=== PATIENT | male | born 1980 | race Two or more races ===

== ENCOUNTER → 2024-07-21 | Outpatient (CLI) | payer MEDICAID, SELFPAY ==
--- NOTE | 2024-07-21 15:06 | XR_ITS ---
Examination: Testicular sonography complete Technique: Grayscale sonographic images testes, assessment arterial inflow venous outflow Doppler spectral analysis carful analysis Exam date and time: July 21, 2024 1606 hrs. Indications: Onset left testicular pain beginning one week ago Findings: Right testis 3.8 x 2.0 x 3.0 cm Epididymis 20 mm Arterial flow testicle. No testicular mass Mild hydrocele Left testis 3.3 x 1.8 x 3.0 cm Epididymis 12 mm Arterial flow testicle. No testicular mass. Mild hydrocele Mild varicocele Impression: No testicular torsion or testicular mass Mild bilateral hydronephrosis Mild left varicocele
== END | disposition home or self-care (01) ==
PROVIDERS: Referring Provider Student in an Organized Health Care Education/Training Program; Visit Provider Student in an Organized Health Care Education/Training Program
DX: N13.30 Unspecified hydronephrosis (principal); I86.1 Scrotal varices
CPT/HCPCS: 76870